=== PATIENT | female | born 1990 | race Hispanic/Latino ===

== ENCOUNTER 2023-09-09 00:16 | Day surgery (SDC) | payer MEDICAID ==
[2023-09-09 00:43] VITALS: BMI 29.6
[2023-09-09] MEDS ORDERED: hydrALAZINE 20 MG/ML VIAL SLOW IVP PRN (01:06)
[2023-09-09] MEDS ORDERED: Acetaminophen 500 MG TAB PO PRN (01:12)
[2023-09-09] MEDS ORDERED: Lactated Ringer's 1,000 ML IV SCH (01:30)
[2023-09-09 01:54] LABS: Hematocrit 32.4 % (34.9-44.5); Hemoglobin 10.4 g/dL (12.0-15.5); Mean Corpuscular HGB CONC 32.1 g/dL (32.0-36.0); Mean Corpuscular Hemoglobin 24.2 pg (27.0-33.0); Mean Corpuscular Volume 75.3 fl (81.6-98.3); Mean Platelet Volume 10.1 fl (7.4-10.4); Platelet Count 313 10x3/uL (150-450); RBC Distribution Width 14.6 % (11.5-14.5)
[2023-09-09 02:12] LABS: Bilirubin Neg (Negative); Blood, Urine Negative (Negative); Clarity Clear (Clear); Glucose, Urine (Dipstick) Normal (Negative); Ketone, Urine Negative (Negative); Leukocyte 25 (Negative); Nitrite Negative (Negative); Protein, Urine (Dipstick) 30 mg/dl (Neg-Trace); Specific Gravity, Urine 1.015 (1.005-1.030)
[2023-09-09 02:20] LABS: RBC/HPF 0-3 HPF (0-3)
[2023-09-09 02:21] LABS: Bacteria/HPF 3+ HPF (None Seen)
[2023-09-09 02:27] LABS: Cocaine Metabolite Screen Not Detected (NotDetected); Methamphetamine Not Detected (NotDetected); Opiate Screen Not Detected (NotDetected); Phencyclidine (PCP) Not Detected (NotDetected); THC/Cannabinoid Screen Not Detected (NotDetected)
[2023-09-09 02:28] LABS: Amphetamine Not Detected (NotDetected); Barbiturates Screen Not Detected (NotDetected); Benzodiazepine Screen Not Detected (NotDetected); Methadone Not Detected (NotDetected); Oxycodone Screen Not Detected (NotDetected); Tricyclic Screen Not Detected (NotDetected)
[2023-09-09 02:28] LABS: Syphilis Antibody Nonreactive (Nonreactive); Syphilis Antibody Index 0.03 S/CO (<1.00 Non-Reactive)
[2023-09-09 02:30] LABS: HBSAg Index 0.23 S/CO (0-0.99); HIV (1/2) Antibody/Antigen Non-Reactive (NonReactive); HIV 1/2 INDEX 0.11 S/CO (<1.00); Hep B Surf Ag - L&D Non-Reactive S/CO (NonReactive)
[2023-09-09] MEDS: Acetaminophen 500 MG TAB PO SCH (02:56)
[2023-09-09] MEDS: cefTRIAXone\\ROCEPHIN 1 GM in Sodium Chloride 0.9% 100 ML IVPB SCH (03:02)
[2023-09-10 13:34] LABS: GC by PCR, EndoCx Swab Not Detected (NotDetected)
== END 2023-09-09 03:55 | disposition home or self-care (01) ==
LOC: CSHLD/OP 00:16
PROVIDERS: ATTEND Obstetrics & Gynecology
DX: O47.1 False labor at or after 37 completed weeks of gestation (principal); O36.8130 Decreased fetal movements, third trimester, not applicable or unspecified; O34.211 Maternal care for low transverse scar from previous cesarean delivery; O26.853 Spotting complicating pregnancy, third trimester; Z79.899 Other long term (current) drug therapy; Z3A.38 38 weeks gestation of pregnancy
CPT/HCPCS: 76815; 76819; 80306; 81001; 85027; 86762; 86780; 86850; 86900; 86901; 87081; 87340; 87389; 87480; 87510; 87591; 87660; 96360; 96365; 99285; J0696; J3490

== ENCOUNTER 2023-09-25 09:54 | Inpatient (IN) | payer MEDICAID, SELFPAY ==
[2023-09-25] MEDS ORDERED: Promethazine HCl 25 MG/ML VIAL IM PRN ×2 (10:37→13:42)
[2023-09-25] MEDS ORDERED: Acetaminophen 500 MG TAB PO PRN (10:37)
[2023-09-25] MEDS ORDERED: Methylergonovine 0.2 MG/ML VIAL IM PRN (10:37)
[2023-09-25] MEDS ORDERED: Bicitra 30 ML UDCUP PO PRN (10:37)
[2023-09-25] MEDS ORDERED: Tranexamic Acid 1,000 MG/10 ML VIAL IVP PRN (10:37)
[2023-09-25] MEDS ORDERED: hydrALAZINE 20 MG/ML VIAL SLOW IVP PRN ×2 (10:37→15:34)
[2023-09-25] MEDS ORDERED: Ondansetron PF 4 MG/2 ML Vial IVP PRN ×3 (10:37→13:42)
[2023-09-25] MEDS ORDERED: Misoprostol 200 MCG TAB PR PRN (10:37)
[2023-09-25] MEDS ORDERED: Diphenoxylate HCl/Atropine Tablet PO PRN (10:37)
[2023-09-25] MEDS ORDERED: Carboprost 250 MCG/ML AMP IM PRN (10:37)
[2023-09-25] MEDS ORDERED: Oxytocin 30 units/NS 500 ML 500 ML IV SCH (10:45)
[2023-09-25 11:14] VITALS: BMI 25.9
[2023-09-25 11:22] LABS: Hematocrit 33.2 % (34.9-44.5); Hemoglobin 10.7 g/dL (12.0-15.5); Mean Corpuscular HGB CONC 32.2 g/dL (32.0-36.0); Mean Corpuscular Hemoglobin 24.5 pg (27.0-33.0); Mean Platelet Volume 10.3 fl (7.4-10.4); Platelet Count 325 10x3/uL (150-450); RBC Distribution Width 15.4 % (11.5-14.5); Red Blood Cell (RBC) Count 4.37 10x6/uL (3.90-5.03); White Blood Cell (WBC) Count 8.4 10x3/uL (3.5-10.5)
[2023-09-25 11:27] LABS: Syphilis Antibody Nonreactive (Nonreactive); Syphilis Antibody Index 0.03 S/CO (<1.00 Non-Reactive)
[2023-09-25 11:28] LABS: HBSAg Index 0.22 S/CO (0-0.99); Hep B Surf Ag - L&D Non-Reactive S/CO (NonReactive)
[2023-09-25] MEDS: CEFAZOLIN 2 GM in Sodium Chloride 0.9% 100 ML IVPB SCH (11:48)
[2023-09-25] MEDS: Famotidine/PF 20 mg/2ml Vial SLOW IVP PRN (11:48)
[2023-09-25] MEDS: Lactated Ringer's 1,000 ML IV SCH (11:48)
[2023-09-25] MEDS ORDERED: Naloxone HCl 0.4 mg/ml Vial IVP PRN ×2 (13:42)
[2023-09-25] MEDS ORDERED: diphenhydrAMINE 50 MG/ML VIAL IVP PRN (13:42)
[2023-09-25] MEDS ORDERED: Naloxone HCl 0.4 mg/ml Vial IV PRN (13:42)
[2023-09-25] MEDS ORDERED: Meperidine HCl/PF 25 MG (1 mL) VIAL SLOW IVP PRN (13:42)
[2023-09-25] MEDS ORDERED: fentaNYL 50 mcg/mL 1 mL Vial SLOW IVP PRN (13:42)
[2023-09-25] MEDS ORDERED: Promethazine HCl 25 MG SUPP PR PRN (13:42)
[2023-09-25] MEDS ORDERED: Moisturizing Cream (Eucerin) 113 GM JAR TOP PRN (13:42)
[2023-09-25] MEDS ORDERED: Morphine 4 MG/ML VIAL SLOW IVP PRN (13:42)
[2023-09-25] MEDS ORDERED: Ketorolac Tromethamine 30 MG (1 mL) VIAL IVP SCH (13:45)
[2023-09-25] MEDS ORDERED: Communication Order-Pharmacy FS SCH (13:45)
[2023-09-25] MEDS: Ketorolac Tromethamine 30 MG (1 mL) VIAL IVP PRN (15:24)
[2023-09-25] MEDS ORDERED: diphenhydrAMINE 25 MG CAP PO PRN (15:34)
[2023-09-25] MEDS ORDERED: Lanolin Ointment 7 GM TUBE TOP PRN (15:34)
[2023-09-25] MEDS: fentaNYL 50 mcg/mL 1 mL Vial ONE (16:16)
[2023-09-25] MEDS: Oxytocin 10 UNITS/ML VIAL ONE ×2 (16:17)
[2023-09-25] MEDS: Erythromycin Base 0.5% Oint 1 GM TUBE ONE (16:17)
[2023-09-25] MEDS: Phenylephrine 40 MG/NS 250 ML 250 ML ONE (16:17)
[2023-09-25] MEDS: Phytonadione Neonatal 1 MG/0.5 ML AMP ONE (16:17)
[2023-09-25] MEDS: Morphine PF 10 MG/10 ML VIAL ONE (16:17)
[2023-09-25] MEDS: Boostrix 0.5 ML (Tdap) VIAL (>/=7 yrs of age) IM ONE (16:19)
[2023-09-25] MEDS: Ondansetron PF 4 MG/2 ML Vial ONE (16:19)
[2023-09-25] MEDS: Dexamethasone 4 mg/ml Vial ONE (16:19)
[2023-09-25] MEDS: Docusate 100 MG CAP PO SCH (21:36)
[2023-09-25] MEDS: Ferrous Sulfate 325 MG TAB PO SCH (21:36)
[2023-09-26 03:29] LABS: Hematocrit 29.2 % (34.9-44.5); Hemoglobin 9.1 g/dL (12.0-15.5); Mean Corpuscular HGB CONC 31.2 g/dL (32.0-36.0); Mean Corpuscular Hemoglobin 23.5 pg (27.0-33.0); Mean Corpuscular Volume 75.5 fl (81.6-98.3); Mean Platelet Volume 10.1 fl (7.4-10.4); Platelet Count 311 10x3/uL (150-450); RBC Distribution Width 15.5 % (11.5-14.5); Red Blood Cell (RBC) Count 3.87 10x6/uL (3.90-5.03); White Blood Cell (WBC) Count 12.8 10x3/uL (3.5-10.5)
[2023-09-26] MEDS: HYDROcodone/Acetaminophen 5/325 mg Tablet PO PRN ×2 (08:23→22:03)
[2023-09-26] MEDS: Prenatal Vitamin 1 TAB PO SCH (08:28)
[2023-09-26] MEDS: Simethicone Chewable 80 MG TAB PO PRN (08:28)
[2023-09-26] MEDS: Lactated Ringer's 500 ML IV SCH (13:50)
[2023-09-26 14:02] LABS: Hematocrit 29.6 % (34.9-44.5); Platelet Count 308 10x3/uL (150-450)
[2023-09-26] MEDS: Ibuprofen 800 MG TAB PO SCH (14:50)
[2023-09-27 10:56] LABS: Hematocrit 27.4 % (34.9-44.5); Hemoglobin 8.4 g/dL (12.0-15.5); Mean Corpuscular HGB CONC 30.7 g/dL (32.0-36.0); Mean Corpuscular Hemoglobin 23.5 pg (27.0-33.0); Mean Corpuscular Volume 76.5 fl (81.6-98.3); Mean Platelet Volume 10.6 fl (7.4-10.4); Platelet Count 332 10x3/uL (150-450); RBC Distribution Width 15.9 % (11.5-14.5); Red Blood Cell (RBC) Count 3.58 10x6/uL (3.90-5.03); White Blood Cell (WBC) Count 11.5 10x3/uL (3.5-10.5)
[2023-09-28 07:42] VITALS: BP 111/70; TEMP 98.1
== END 2023-09-28 14:00 | disposition home or self-care (01) | DRG 788 ==
LOC: CSHLD 09:54 → CSHPP 15:55
PROVIDERS: ADMIT Family Medicine; ATTEND Family Medicine
PROC: 10D00Z1 Extraction of Products of Conception, Low, Open Approach (ICD-10-PCS; principal; 2023-09-25)
DX: O99.02 Anemia complicating childbirth (principal); Z3A.39 39 weeks gestation of pregnancy; Z37.0 Single live birth
CPT/HCPCS: 36415; 36416; 85027; 86780; 86850; 86900; 86901; 87340; J1100; J1885; J2274; J2405; J2590; J3010; J3490; J7120; S0028